=== PATIENT | male | born 1960 | race Caucasian/White ===

== ENCOUNTER 2023-10-04 06:53 | Outpatient (OUT) | payer MEDICARE, OTHER, SELFPAY ==
[2023-10-04 07:40] LABS: Basophils Percent Auto 0.3 % (0.2-2.0); Eosinophils Absolute Auto 0.2 10^3/uL (0.0-0.7); Eosinophils Percent Auto 2.2 % (0.9-7.0); Hematocrit 52.2 % (42.0-54.0); Hemoglobin 17.2 g/dL (14.0-18.0); Immature Granulocytes Abs Auto 0.03 10^3/uL (0.00-0.03); Immature Granulocytes Pct Auto 0.3 % (0.0-0.5); Lymphocytes Absolute Auto 1.9 10^3/uL (1.2-3.8); Mean Corpuscular Hemoglobin 30.9 pg (25.9-34.0); Mean Corpuscular Volume 93.7 fL (80.0-94.0); Monocytes Absolute Auto 0.8 10^3/uL (0.3-0.8); Monocytes Percent Auto 9.1 % (1.7-12.0); Neutrophils Absolute Auto 6.2 10^3/uL (1.4-6.5); Neutrophils Percent Auto 67.1 % (43.0-75.0); Platelet Count 244 10^3/uL (150-450); Red Blood Count 5.57 10^6/uL (4.70-6.10); Red Cell Distribution Width 14.2 % (11.0-15.0); White Blood Count 9.2 10^3/uL (4.0-11.0)
[2023-10-04 07:46] LABS: Alanine Aminotransferase 19 U/L (16-63); Albumin Globulin Ratio 1.1; Albumin Level 3.9 g/dL (3.4-5.0); Alkaline Phosphatase 81 U/L (46-116); Aspartate Amino Transferase 16 U/L (15-37); BUN Creatinine Ratio 11.3; Bilirubin Total 0.8 mg/dL (0.2-1.0); Calcium 8.8 mg/dL (8.5-10.1); Carbon Dioxide 29.9 mmol/L (21.0-32.0); Chloride 101 mmol/L (98-107); Estimated GFR (African America >60 (>=60); Estimated GFR (Non-African Ame 59 (>=60); Globulin 3.6 g/dL; Glucose 108 mg/dL (74-106); Potassium 3.9 mmol/L (3.5-5.1); Sodium 138 mmol/L (136-145); Total Protein 7.5 g/dL (6.4-8.2)
== END 2023-10-04 06:54 | disposition home or self-care (01) ==
LOC: LAB 06:57
PROVIDERS: PCP Family Medicine; Visit Provider Family Medicine
DX: I10 Essential (primary) hypertension (principal); Z12.5 Encounter for screening for malignant neoplasm of prostate
CPT/HCPCS: 36415; 80053; 85025; G0103

== ENCOUNTER 2025-02-21 06:17 | Outpatient (OUT) | payer MEDICARE, OTHER, SELFPAY ==
--- OUTSIDE RECORDS SUMMARY | 2025-02-19 08:50 | XMS_ITS | Continuity of Care Document ---
Author Organization [facility] Address [address] [place] [address] Phone Care Team Providers Care Machine Overhauler Name Role Phone Zee Loyola MD Primary Care Provider Zee Loyola MD Attending Provider Care Teams Patient Care Team Team Status: Active Member Role/Relationship Status Dates Zee Loyola MD Primary Care Provider Active Patient Care Team Team Status: Inactive Member Role/Relationship Status Dates Zee Loyola MD Primary Care Provider Active Start: February 19, 2025 End: February 19, 2025Zee Loyola MDAttending ProviderActiveStart: February 19, 2025 End: February 19, 2025 Chief Complaint and Reason for Visit Chief Complaint Admit Date Wellness February 19, 2025 1:02pm Reason for Visit Admit Date Cervical pain (neck) February 19, 2025 1:02pm Colon cancer screening declined February 19, 2025 1:02pm Essential (primary) hypertension Perry hinds 2024 1:02pm History of CVA (cerebrovascular accident ) February 19, 2025 1:02pm Influenza vaccination declined by juana kaye February 19, 2025 1:02pm Medicare annual wellness visit, subseque nt February 19, 2025 1:02pm Screening PSA (prostate specific antigen ) February 19, 2025 1:02pm Vertigo February 19, 2025 1:02pm Reason for Referral Type Reason(s) Provider Provider Contact Information P rovider Address Start Date Vertigo Neck pain History of cerebrovascular [id number] - Dizziness and giddiness,M54.2 - Cervicalgia,Z86.73 - Personal history of transient ischemic attack (TIA), and cerebral infarction without residual deficitsN[facility] Phone: [phone] [facility] [id number] 2024 Allergies, Adverse Reactions, Alerts Allergen Type Severity Reaction Last Updated Verified Status No Known Allergies Allergy Unknown February 19, 2025 1:12pmYesActive Social History Smoking Status Status Start Date End Date Date of Observa tion Smokes tobacco daily (finding) August 11, 2024 8:18pm Observation Status Observation Response Date of Response Legal Sex Male (finding) Sex Assigned At [facility] 1960 Family History Relationship Condition Age at Onset Recorded Date/T abiodun father Malignant neoplasm Unknown sisterMalignant neoplasmUnknownbrotherDiabetes mellitusUnknownmotherHypertension Unknown Problems Active Problems Problem Diagnosis/Recorded Date Onset Date Stat us Elevated glucose February 19, 2025 1:38pm Unknown Active Colon cancer screening declined February 19, 2025 1: 37pm Unknown Active Medicare annual wellness vis it, subsequent 2023 10:30am Unknown Active Screening PSA (prostate spec ific antigen) September 26, 2023 10:30am Unknown Active Influenza vaccination declin ed by patient February 19, 2025 1:37pm Unknown Active Tobacco abuse 2023 10:30am Unknown Act tete Vertigo February 19, 2025 1:31pm Unknown A ctive Essential (primary) hypertension September 23, 2023 8:24a m Unknown Active Cervical pain (neck) August 22, 2024 8:44am Unknown Active History of CVA (cerebrovascu lar accident) August 22, 2024 8:44am Unknown Active Inactive/Resolved Problems Problem Diagnosis/Recorded Date Onset Date Stat us Torticollis August 11, 2024 7:53pm Unknown Resolv ed Medications Medication Status Dose Units Route Directions Qty Days Refills S tart Date Stop Date End Date Reason(s) Instructions Adherence Metoprolol Succinate 50 mg tablet extended release 24 hr Discontinued 0 .ROUTE.MYIMWXN003Frqgdyl 2023 7:27amOctober 2024 1:23pmTAKE 1 TABLET BY MOUTH DAILYMetoprolol Succinate 50 mg tablet extended release 24 hrActive0 .ROUTE.CUJNECP662Ssjclgc 2024 1:23pmTAKE 1 TABLET BY MOUTH DAILYComplies with drug therapyTizanidine (Zanaflex) 4 mg xopcpuOukipihtkhno5OOIIOkbdz times daily as needed for muscle gvsztkjbth66Uag 2024 11:00pmMay 2024 10:01amMethylprednisolone (Medrol (Zheng)) 4 mg tablets,dose mvmpJmnzqyfhrwfr9YA .IGMBMKK248Las 2024 11:00pmNovember 2024 1:12pmorally per package directionsTizanidine (Zanaflex) 4 mg ejipofUwqftn2SRPHTdzdm at bedtime as needed for muscle swzetzqike223Bif 2024 10:00amComplies with drug therapy Metoprolol Succinate 50 mg tablet extended release 24 pzNuvzisbqtxzo8IQZDVVtzkn September 22, 2023 11:00pmJune 2023 10:25amFreeTextSig: TAKE 1 TABLET BY MOUTH DAILY; Note: Source Status: Start; Refills: 0; Qty: 90 Tablet; Provider: Milla Koch ( )Albuterol Sulfate 90 mcg/actuation HFA aerosol tyeqjmdDpbhdv0IULUFLBDUPYULXDZKTP 4-6 HOURS as needed for shortness of breath or wheezing8.51June 2023 11:00pmComplies with drug therapyMetoprolol Succinate 50 mg tablet extended release 24 bnZbpitbcmddec32ISYPTcvea651Hdbw 2023 10:25amOctober 2023 7:27amFreeTextSig: TAKE 1 TABLET BY MOUTH DAILY; Note: Source Status: Start; Refills: 0; Qty: 90 Tablet; Provider: Milla Koch ( )Nicotine (Nicoderm Cq) 21 mg/24 hr patch 24 hourActive1 ATPXTSHRVRQKOHOGohwb191Brun 2023 11:00pmComplies with drug therapy Vital Signs Vital Reading Result Reference Range Collection Date/Time Height 74 [in_i] February 19, 2025 1:26otTpvuob807.67 kgNov2024 1:11pmHeart Rate67 /mav66-763DtpdvbqxFebruary 19, 2025 1:11pmRespiratory rate14 /fih50-14BuzsjsdpFebruary 19, 2025 1:11pmOxygen saturation by Pulse tivohitq45 %95-100February 19, 2025 1:11pmBP Cyuteqie659 mm[Hg]100-140February 19, 2025 1:11pmBP Jotxjayxn90 mm[Hg]60-100February 19, 2025 1:11pmBMI (Body Mass Index)31.3 kg/i4OmjfdxepFebruary 19, 2025 1:11pm Advance Directives Advance Directive Response Recorded Date/ Time Advance Directives No September 25 9:48am Insurance Providers Guarantor Kemar Nina Jairo Address [address] [place] [address]Clqueuv Info.Home Phone: Coverage Status Update:2024 Payer Group Member ID Coverage Type Subscriber Relationship to Subscriber Effective Date Expiration Date Medicare [id number] W Belcher Id: [id number] [address] [place] [address] [facility] Phone: [facility] [address] [place] [address] [place] [address] Work Phone: [phone] W Belcher Id: [id number] [address] [place] [address] [facility] [id number] W Belcher Id: [id number] [address] [place] [address] Home Phone: Self Encounters Encounter Location(s) Arrival/Admit Date Discharge/Departure Date Discharge/Departure Disposition Provider(s) Departed Physician/ Provider Office Visit -[facility] February 19, 2025 1:02pm February 19, 2025 1:49pm Discharged to home care or self care (routine discharge) Zee Loyola MD Recent Diagnosis Onset Date Admit Date Cervical pain (neck) Unknown February 192024 1:02pm Colon cancer screening declined Unknown February 19, 2025 1:02pm Essential (primary) hypertension Unknown February 19, 2025 1:02pm History of CVA (cerebrovascular accident) Unknow n February 19, 2025 1:02pm Influenza vaccination declined by patient Unknow n February 19, 2025 1:02pm Medicare annual wellness visit, subsequent Unkno wn February 19, 2025 1:02pm Screening PSA (prostate specific antigen) Unknow n February 19, 2025 1:02pm Vertigo Unknown February 19, 2 025 1:02pm Assessments Diagnosis Onset Date Resolution Status Admit Date [facility]:02pmColon cancer screening declinedacuteFebruary 19, 2025 1:02pmEssential (primary) hypertensionacute[facility]20[facility] 1:02pm History of CVA (cerebrovascular accident)[facility] 1:02pm Influenza vaccination declined by patientacuteNov2024 1:02pmMedicare annual wellness visit, subsequentacuteFebruary 19, 2025 1:02pmScreening PSA (prostate specific antigen)[facility] 1:02pmVertigoacuteTristar [facility] 2024 1:02pm Plan of Treatment Future Tests Future scheduled test information is unavailable Pending Tests Test Name Ordered Date Scheduled Date Comprehensive Metabolic Panel February 19 1:37pm Future Visits Future appointment information is unavailable Future Procedures Procedure Name Ordered Date Scheduled Date A1C with Estimated Average Glu February 19 1:37pm Complete Blood Count Auto DiffNov2024 1:37pmLipid PanelCarteret Health Care2024 1:37pmMicroAlb Creat Ratio,UNovember 2024 1:38pmPSA Screen (Yearly Only)February 19, 2025 1:37pm Future Medications Future medication information is unavailable Patient Instructions Patient instructions are unavailable Hospital Discharge Instructions Ambulatory Orders* Referral to PT / OT / Speech (PT/OT/SP) Location: None Selected
--- OUTSIDE RECORDS SUMMARY | 2025-02-21 06:22 | XMS_ITS | CCD ---
Author Organization [facility] Care Team Providers Care Drum Worker Name Role Phone DR ZEE MARSHALL Consulting Unavailable ROLANDO, DR ZEE Fink Attending Unavailable ROLANDO, DR ZEE Fink Admitting Unavailable ROLANDO, DR ZEE Fink Primary Care Unavailable ROLANDO, DR ZEE Fink Primary Care Unavailable ROLANDO, DR ZEE Fink Consulting Unavailable ROLANDO, DR ZEE Fink Attending Unavailable ROLANDO, DR ZEE Fink Admitting Unavailable Zee Marshall MD Primary Care Provider [phone] Bethany Salcedo APRN Emergency Provider [phone] Zee Marshall Primary Care Unavailable Bethany Salcedo Attending Unavailable Bethany Salcedo Admitting Unavailable Medications Current Medications MedicationDrug Class(es)DatesSig (Normalized)Sig (Original)[id number] 200 actuat albuterol 0.09 mg/actuat metered dose inhaler (3 sources)beta2-Adrenergic AgonistStart: 07-09-0102ntpz 1 puff(s) by inhalation every four to six hours as needed for wheezingAlbuterol Sulfate 90 mcg/actuation HFA aerosol inhaler Active 2 PUFF INHALATION EVERY 4-6 HOURS as needed for shortness of breath or wheezing 8.5 September 26, 2023 12:00ammethylPREDNISolone 4 mg oral tablet (2 sources)CorticosteroidStart: 31-05-5995kqit 1 tablet by mouth once Methylprednisolone (Medrol (Zheng)) 4 mg tablets,dose pack Active 0 PO .COMPLEX August 11, 2024 12:00am orally per package cpisaxcctq84 hr metoprolol succinate 50 mg extended release oral tablet (8 sources)beta-Adrenergic BlockerStart: 29-70-8192krqa 1 tablet by mouth once dailyMetoprolol Succinate 50 mg tablet extended release 24 hr Active 0 .ROUTE .COMPLEX January 19, 2024 8:27am TAKE 1 TABLET BY MOUTH DAILYStart: 06-21-2024 End: 34-16-3799kijp 1 tablet by mouth once dailyMetoprolol Succinate 50 mg tablet extended release 24 hr Discontinued 50 MG PO Daily September 26, 2023 11:25am January 19, 2024 8:27am FreeTextSig: TAKE 1 TABLET BY MOUTH DAILY; Note: Source Status: Start; Refills: 0; Qty: 90 Tablet; Provider: Rolando Koch ( )24 hr nicotine 0.875 mg/hr transdermal system (3 sources)Cholinergic Nicotinic AgonistStart: 89-84-4014wllmm 1 dose transdermal route once daily, then apply 1 dose transdermal route every twenty- four hoursNicotine (Nicoderm Cq) 21 mg/24 hr patch 24 hour Active 1 PATCH TRANSDERML Daily September 252:00amtiZANidine 4 mg oral tablet (3 sources)Central alpha-2 Adrenergic AgonistStart: 40-52-6843kgfv 1 tablet by mouth once daily at bedtime as neededTizanidine (Zanaflex) 4 mg tablet Active 4 MG PO Daily at bedtime as needed for muscle spasticity August 16, 2024 11:00am Start: 08-11-2024 End: 57-57-4382sbrj 1 tablet by mouth three times daily as neededTizanidine (Zanaflex) 4 mg tablet Discontinued 4 MG PO Three times daily as needed for muscle spasticity August 11, 2024 12:00am August 16, 2024 11:01am Problems Active Problems Problem ClassificationProblemDateDocumented DateEpisodic/ChronicEssential hypertension (9 sources)Essential (primary) hypertension; Translations: [Essential hypertension]Onset: 21-07-0385EagkcdeKgbie screening for suspected conditions (not mental disorders or infectious disease) (5 sources)Encounter for screening for malignant neoplasm of prostate; Translations: [Patient encounter status]Onset: [id number] Residual codes; unclassified (2 sources)Tobacco user; Translations: [Tobacco use]69-34-6548Eycfkxpq Spondylosis; intervertebral disc disorders; other back problems (3 sources)Torticollis; Translations: [Torticollis]Onset: 86-42-570955 Episodic Past or Other Problems Problem ClassificationProblemDateDocumented DateEpisodic/ChronicDiabetes mellitus without complication (4 sources)Impaired fasting glucose; Translations: [IMPAIRED FASTING GLUCOSE] Onset: 60-50-4907Qhjyontk Results Test NameValueInterpretationReference RangeFacilityXR cervical spine 5V*on 44-96-8330BI cervical spine 5V*[facility] Main [address] [address] XRay Report Signed Patient: Kemar Gill MR#: [id number] : 1960 Acct:[id number] Age/Sex: 63 / M ADM Date: 08/11/24 Loc: ER Room: Type: [facility] ER Attending Dr: Copies to: Bethany Salcedo APRN Ordering Provider: Bethany Salcedo APRN Date of Service: 08/11/24 XR/XR cervical spine 5V*: Neck Pain/Injury XR cervical spine 5V* 08/11/2024 8:09 PM SIGNS AND SYMPTOMS: Neck pain and neck stiffness PROTOCOLS: Frontal, lateral, and oblique radiographs of the cervical spine COMPARISON: None FINDINGS: The bones are in anatomic alignment. There is preservation of the vertebral body heights and intervertebral disc spaces. Facet hypertrophy and uncovertebral joint spurring contribute to neural foraminal stenosis which is greatest at C3-C4. There is no fracture or destructive lesion. Calcified plaque is noted in the carotid bifurcations and aortic arch. XR/XR cervical spine 5V* IMPRESSION: No fracture or subluxation. Degenerative changes contribute to neural foraminal narrowing greatest at C3-C4. Impression dictated by: Philip Neville M.D. 08/12/2024 9:08 AM Dictation Location: [place] [address] Transcribed By: [facility] 08/12/24907 Dictated By: Philip Neville II, MD 08/12/24904 Signed By: 08/12/24 09[facility] GroupX-ray reportOrdered By: Philip Neville on 98-26-1158Lrjlz reportFIRJOINT TOWNSHIP [facility] Main [address] [address] XRay Report Signed Patient: Kemar Gill MR#: [id number] : 1960 Acct:[id number] Age/Sex: 63 / M ADM Date: 5 Loc: ER Room: Type: [facility] ER Attending Dr: Copies to: Bethany Salcedo APRN~ Ordering Provider: Bethany Salcedo APRN Date of Service: 08/11/24 XR/XR cervical spine 5V*: Neck Pain/Injury XR cervical spine 5V* 08/11/2024 8:09 PM SIGNS AND SYMPTOMS: Neck pain and neck stiffness PROTOCOLS: Frontal, lateral, and oblique radiographs of the cervical spine COMPARISON: None FINDINGS: The bones are in anatomic alignment. There is preservation of the vertebral bodyheights and intervertebral disc spaces. Facet hypertrophy and uncovertebral joint spurring contribute to neural foraminal stenosis which is greatest at C3- C4. There is no fracture or destructive lesion. Calcified plaque is noted in the carotid bifurcations and aortic arch. XR/XR cervical spine 5V* IMPRESSION: No fracture or subluxation. Degenerative changes contribute to neural foraminal narrowing greatest at C3-C4. Impression dictated by: Philip Neville M.D. 08/12/2024 9:08 AM Dictation Location: [place] [address] Transcribed By: [facility] 08/12/24907 Dictated By: Philip Neville II, MD 08/12/24904 Signed By: 08/12/24907 [facility] Work Phone: CBV AUTO DIFFon 87-03-1361KYHR #0.0 103/ulNormal 0.0-0.1The [facility] HealthComment on above:Performed By: #### CBC #### [facility] [address] [place] [address] [address] Khari Grafphils/100 WBC (Bld)0.4 %Normal0.2-2.0[facility] Comment on above:Performed By: #### CBC #### [facility] [address] [place] [address] [address] Khari Bryson #0.2 103/ulNormal0.0-0.7The [facility] HealthComment on above: Performed By: #### CBC #### [facility] [address] [place] [address] Dr. Khari Delcidosinophils/100 WBC (Bld)2.0 %Normal0.9-7.0[facility] Comment on above:Performed By: #### CBC #### [facility] [address] [place] [address] Dr. Khari Delcidrythrocyte distribution width (RBC) [Ratio]13.8 %Jekxek38.0-15.0 The [facility] HealthComment on above:Performed By: #### CBC #### [facility] [address] [place] [address] Dr. Khari AyalaHematocrit (Bld) [Volume fraction]52.8 %Zvdqnl25.0-54.0The [facility] HealthComment on above:Performed By: #### CBC #### [facility] [address] [place] [address] Dr. Khari AyalaHemoglobin (Bld) [Mass/Vol]17.7 g/cPMuyqxk58.0-18.0The [facility] HealthComment on above:Performed By: #### CBC #### [facility] [address] [place] [address] Dr. Khari Bland #0.05 10e3/ulCritically high0.00-0.03[facility] Comment on above:Performed By: #### CBC #### [facility] [address] [place] [address] Dr. Khari Bland %0.5 %Normal0.0-0.5The [facility] HealthComment on above: Performed By: #### CBC #### [facility] [address] [place] [address] Dr. Khari Becerra #2.9 103/ulNormal1.2-3.8The [facility] HealthComment on above:Performed By: #### CBC #### [facility] [address] [place] [address] Dr. Khari Whitemphocytes/100 WBC (Bld)28.4 %Lamxhr14.5-60.0The [facility] HealthComment on above:Performed By: #### CBC #### [facility] [address] [place] [address] Dr. Khari Wheeler DIFF REQNONormalThe Madison HealthComment on above: Performed By: #### CBC #### [facility] [address] [place] [address] Dr. Khari Ribeiro (RBC) [Entitic mass]31.3 blVubhya33.9-34.0The [facility] HealthComment on above:Performed By: #### CBC #### [facility] [address] [place] [address] Dr. Khari Ribeiro (RBC) [Mass/Vol]33.5 g/vNPiezhf52.9-35.2The [facility] HealthComment on above:Performed By: #### CBC #### [facility] [address] [place] [address] Dr. Khari Ribeiro (RBC) [Entitic vol]93.5 nRKascrp40.0-94.0The [facility] HealthComment on above:Performed By: #### CBC #### [facility] [address] [place] [address] Dr. Khari West #1.0 103/ulCritically high0.3-0.8[facility] Comment on above:Performed By: #### CBC #### [facility] [address] [place] [address] Dr. Khari Oliviaocytes/100 WBC (Bld)9.7 %Normal1.7-12.0[facility] Comment on above:Performed By: #### CBC #### [facility] [address] [place] [address] Dr. Khari Bull #5.9 103/ulNormal1.4-6.5The [facility] HealthComment on above:Performed By: #### CBC #### [facility] [address] [place] [address] Dr. Khari Boyerutrophils/100 WBC (Bld)59.0 %Lwqzic50.0-75.0The [facility] HealthComment on above:Performed By: #### CBC #### [facility] [address] [place] [address] Dr. Khari Randhawalet mean volume (Bld) [Entitic vol]8.9 fLCritically low 9.5-13.5The [facility] HealthComment on above:Performed By: #### CBC #### [facility] [address] [place] [address] Dr. Khari AyalaPLT254 103/nwGvmzyc979-687Luu Madison HealthComment on above: Performed By: #### CBC #### [facility] [address] [place] [address] Dr. Khari AyalaRBC5.65 106/ulNormal4.70-6.10The [facility] HealthComment on above:Performed By: #### CBC #### [facility] [address] [place] [address] Dr. Khari AyalaWBC10.1 103/ulNormal4.0-11.0The [facility] HealthComment on above:Performed By: #### CBC #### [facility] [address] [place] [address] Dr. Khari Soares AUTO DIFFon 35-27-2220KJCD #0.0 103/ulNormal0.0-0.1The [facility] HealthComment on above:Performed By: #### CBC #### [facility] [address] [place] [address] Dr. Khari AyalaBasophils/100 WBC (Bld)0.3 %Normal0.2-2.0[facility] Comment on above:Performed By: #### CBC #### [facility] [address] [place] [address] Dr. Khari Bryson #0.2 103/ulNormal0.0-0.7The [facility] HealthComment on above: Performed By: #### CBC #### [facility] [address] [place] [address] [address] Khari Delcidosinophils/100 WBC (Bld)1.3 %Normal0.9-7.0[facility] Comment on above:Performed By: #### CBC #### [facility] [address] [place] [address] Dr. Khari Delcidrythrocyte distribution width (RBC) [Ratio]13.9 %Kddapq50.0-15.0 The [facility] HealthComment on above:Performed By: #### CBC #### [facility] [address] [place] [address] Dr. Khari AyalaHematocrit (Bld) [Volume fraction]52.0 %Oyilww46.0-54.0The [facility] HealthComment on above:Performed By: #### CBC #### [facility] [address] [place] [address] Dr. Khari AyalaHemoglobin (Bld) [Mass/Vol]17.7 g/aEIcjcna47.0-18.0The [facility] HealthComment on above:Performed By: #### CBC #### [facility] [address] [place] [address] Dr. Khari Bland #0.06 10e3/ulCritically high0.00-0.03[facility] Comment on above:Performed By: #### CBC #### [facility] [address] [place] [address] Dr. Khari Bland %0.4 %Normal0.0-0.5The [facility] HealthComment on above: Performed By: #### CBC #### [facility] [address] [place] [address] Dr. Khari Becerra #2.2 103/ulNormal1.2-3.8The [facility] HealthComment on above:Performed By: #### CBC #### [facility] [address] [place] [address] Dr. Khari Whitemphocytes/100 WBC (Bld)16.0 %Critically low20.5-60.0The [facility] on above:Performed By: #### CBC #### [facility] [address] [place] [address] [address] Khari Wheeler DIFF REQNONormalThe Madison HealthComment on above: Performed By: #### CBC #### [facility] [address] [place] [address] [address] Khari Ribeiro (RBC) [Entitic mass]31.4 ylDtqufh81.9-34.0The [facility] HealthComment on above:Performed By: #### CBC #### [facility] [address] [place] [address] [address] Khari Ribeiro (RBC) [Mass/Vol]34.0 g/cEUxhakx04.9-35.2The [facility] HealthComment on above:Performed By: #### CBC #### [facility] [address] [place] [address] Dr. Khari Ribeiro (RBC) [Entitic vol]92.2 vWKodrij39.0-94.0[facility] Campusment on above:Performed By: #### CBC #### [facility] [address] [place] [address] Dr. Khari West #1.2 103/ulCritically high0.3-0.8ThChildren[facility] Hospital of [facility] Comment on above:Performed By: #### CBC #### [facility] [address] [place] [address] [address] Khari Oliviaocytes/100 WBC (Bld)9.0 %Normal1.7-12.0[facility] Comment on above:Performed By: #### CBC #### [facility] [address] [place] [address] [address] Khari Bull #9.8 103/ulCritically high1.4-6.5ThChildren's Hospital of [facility] Comment on above:Performed By: #### CBC #### [facility] [address] [place] [address] Dr. Khari Boyerutrophils/100 WBC (Bld)73.0 %Vqocgb69.0-75.0The [facility] on above:Performed By: #### CBC #### [facility] [address] [place] [address] [address] Khari Randhawalet mean volume (Bld) [Entitic vol]8.6 fLCritically low 9.5-13.5The [facility]Communson [facility] on above:Performed By: #### CBC #### [facility] [address] [place] [address] [address] Khari AyalaPLT260 103/poOabfbo256-923Fbg [facility]Commun[facility] on above: Performed By: #### CBC #### [facility] [address] [place] [address] [address] Khari AyalaRBC5.64 106/ulNormal4.70-6.10The [facility]Communson [facility] on above:Performed By: #### CBC #### [facility] [address] [place] [address] Dr. Khari AyalaWBC13.4 103/ulCritically high4.0-11.0The [facility]Communson [facility] on above:Performed By: #### CBC #### [facility] [address] [place] [address] Dr. Khari AyalaGLYCOHEMOGLOBIN A1Con 85-28-9101VOZ RECOMMENDATIONSEE BELOWNormal [facility] on above:Result Comment: ADA RECOMMENDED LIMIT 4.0 - 6.0 ADA THERAPEUTIC TARGET < 7.0 ACTION SUGGESTED > 7.0Performed By: #### A1C #### [facility] [address] [place] [address] Dr. Khari AyalaGlucose [Mass/Vol]108 mg/dLNormalThGerman Hospital on above:Performed By: #### A1C #### [facility] [address] [place] [address] Dr. Khari AyalaHbA1c (Bld) [Mass fraction]5.4 %Normal4.5-6.2The [facility] on above:Performed By: #### A1C #### [facility] [address] [place] [address] Dr. Khari EsparzaID PROFILEon 20-05-0591ZHJW-HDL RATIO NORMSSt. Francis HospitalCommunson healthcare [facility]ist[facility] hospital on above:Result Comment: 3.3 - 4.4 LOW RISK 4.4 - 7.1 AVERAGE RISK 7.1 - 11.0 MODERATE RISK >11.0 HIGH RISKPerformed By: #### LIPID, CMP #### [facility] [address] [place] [address] Dr. Khari AyalaCholesterol [Mass/Vol]209 mg/dLCritically high<=200The [facility] on above:Performed By: #### LIPID, CMP #### [facility] [address] [place] [address] Dr. Khari AyalaCholesterol in HDL [Mass/Vol]52 mg/bBVlpbzw34-33HevMagruder Hospital on above:Performed By: #### LIPID, CMP #### [facility] [address] [place] [address] Dr. Khari AyalaCholesterol in LDL [Mass/Vol]136.0 mg/dLSt. Anthony's HospitalCommunson healthcare [facility]ist[facility] hospital on above:Performed By: #### LIPID, CMP #### [facility] [address] [place] [address] Dr. Khari Rowellesterrenetta.total/Cholesterol in HDL [Mass ratio]4.0 {ratio} NormalMagruder Hospital on above:Performed By: #### LIPID, CMP #### [facility] [address] [place] [address] Dr. Khari Suarez NORMAL> or = 60 mg/dl - LOW CARDIOVASCULAR RISK <40 mg/dl - HIGH CARDIOVASCULAR RISKSt. Anthony's HospitalCommunson healthcare [facility] on above:Performed By: #### LIPID, CMP #### [facility] [address] [place] [address] Dr. Khari AyalaLDL CALC NORMALSEE [facility] CenterCommunson [facility] on above:Result Comment: <100 mg/dl OPTIMAL 100 - 129 mg/dl NEAR OR ABOVE OPTIMAL 130 - 159 mg/dl BORDERLINE HIGH 160 - 189 mg/dl HIGH >190 mg/dl VERY HIGH Performed By: #### LIPID, CMP #### [facility] [address] [address] [address] Khari AyalaTriglyceride [Mass/Vol]105 mg/dLNormal<=150The [facility] Comment on above:Performed By: #### LIPID, CMP #### [facility] [address] [address] [address] Khari AyalaVLDL CALC21.0 mg/dLNormalThe Madison HealthComment on above: Performed By: #### LIPID, CMP #### [facility] [address] [address] [address] Khari AyalaPROF 14(COMP METB)on 55-80-5733Dpdtffq [Mass/Vol]4.1 g/dLNormal 3.4-5.0The [facility] HealthComment on above:Performed By: #### LIPID, CMP #### [facility] [address] [place] [address] Dr. Khari AyalaAlbumin/Globulin [Mass ratio]1.1 {ratio}NormalThe Madison HealthComment on above:Performed By: #### LIPID, CMP #### [facility] [address] [address] [address] Khari Boyd [Catalytic activity/Vol]87 U/RFfmnzs66-274Sdm [facility] HealthComment on above:Performed By: #### LIPID, CMP #### [facility] [address] [place] [address] Dr. Khari Abarca [Catalytic activity/Vol]16 U/JOvpmwl74-94Tkh [facility] HealthComment on above:Performed By: #### LIPID, CMP #### [facility] [address] [place] [address] Dr. Khari Shabazz gap [Moles/Vol]11.6 mmol/LNormalThe [facility] Comment on above:Performed By: #### LIPID, CMP #### [facility] [address] [place] [address] Dr. Khari Avina [Catalytic activity/Vol]15 U/NVfenfy80-11Adb [facility] HealthComment on above:Performed By: #### LIPID, CMP #### [facility] [address] [address] [address] Khari AyalaBilirubin [Mass/Vol]1.0 mg/dLNormal0.2-1.0[facility] Comment on above:Performed By: #### LIPID, CMP #### [facility] [address] [address] [address] Khari AyalaCalcium [Mass/Vol]9.4 mg/dLNormal8.5-10.1The [facility] Comment on above:Performed By: #### LIPID, CMP #### [facility] [address] [address] [address] Khari AyalaChloride [Moles/Vol]99 mmol/ORiznxl19-950TdfSheltering Arms Hospital Comment on above:Performed By: #### LIPID, CMP #### [facility] [address] [place] [address] Dr. Khari AyalaCO2 [Moles/Vol]29.4 mmol/VHvaxgf79.0-32.0The [facility] Comment on above:Performed By: #### LIPID, CMP #### [facility] [address] [address] [address] Khari AyalaCreatinine [Mass/Vol]1.05 mg/dLNormal0.70-1.30The [facility] HealthComment on above:Performed By: #### LIPID, CMP #### [facility] [address] [address] [address] Khari DelcidGFR-AF LITHUANIAN>60Normal>=60The [facility] HealthComment on above:Performed By: #### LIPID, CMP #### [facility] [address] [address] [address] Khari DelcidGFR-NON AF LITHUANIAN>60Normal>=60The [facility] Hospitalment on above:Performed By: #### LIPID, CMP #### [facility] [address] [address] [address] Khari AyalaGlobulin (S) [Mass/Vol]3.9 g/dLNormalThe [facility]aro HospitalComment on above:Performed By: #### LIPID, CMP #### [facility] [address] [address] [address] Khari AyalaGlucose [Mass/Vol]110 mg/dLCritically glcg11-368RmdSheltering Arms HospitalComment on above:Performed By: #### LIPID, CMP #### [facility] [address] [address] [address] Khari AyalaPotassium [Moles/Vol]4.0 mmol/LNormal3.5-5.1The [facility] Comment on above:Performed By: #### LIPID, CMP #### [facility] [address] [address] [address] Khari AyalaProtein [Mass/Vol]8.0 g/dLNormal6.4-8.2[facility] Comment on above:Performed By: #### LIPID, CMP #### [facility] [address] [address] [address] Khari AyalaSodium [Moles/Vol]136 mmol/YIuuciy774-311ZegSheltering Arms Hospital Comment on above:Performed By: #### LIPID, CMP #### [facility] [address] [address] [address] Khari AyalaUrea nitrogen [Mass/Vol]12.0 mg/dLNormal7.0-18.0[facility] HospitalComment on above:Performed By: #### LIPID, CMP #### [facility] [address] [address] [address] Khari AyalaUrea nitrogen/Creatinine [Mass ratio]11.4 mg/mgNormalThe [facility] HealthComment on above:Performed By: #### LIPID, CMP #### [facility] [address] [address] [address] Khari Ayala Vital Signs Date TimeVital SignValuePerforming HcwwgfhldQpzdscvc62-97-1837 10:38-0400Body .96 cmZee Marshall MD Work Phone: [facility]05-15-2025 10:38-0400 Body mass index (BMI) [Ratio]31.4 kg/a0DjqairZee Marshall MD Work Phone: [phone] [place], [place] 4246205-15-2025 10:38-0400 Body fegdrk844.13 kgZee Marshall MD Work Phone: [phone] [place], [place] 4246205-15-2025 10:38-0400 Diastolic blood tnxrnnup23 mm[Hg]Zee Marshall MD Work Phone: [phone] [place], [place] 4246205-15-2025 10:38-0400 Heart rate59 /David Marshall MD Work Phone: [phone] [place], [place] 4246205-15-2025 10:38-0400 Systolic blood exurkkcb919 mm[Hg]Zee Marshall MD Work Phone: [phone] [place], [place] 4246205-10-2025 19:42-0400 Body bhyuml168.5 cmZee Marshall MD Work Phone: [phone] [place], [place] 4246205-10-2025 19:42-0400 Body dlpiaswptrz98.3 [degF]Zee Marshall MD Work Phone: [phone] [place], [place] 4246205-10-2025 19:42-0400 Body ontamx199.45 kgZee Marshall MD Work Phone: [phone] [place], [place] 4246205-10-2025 19:42-0400 Diastolic blood fnujzrol190 mm[Hg]Zee Marshall MD Work Phone: [phone] [place], [place] 4246205-10-2025 19:42-0400 Heart rate64 /David Marshall MD Work Phone: [phone] [place], [place] 4246205-10-2025 19:42-0400 Respiratory rate18 /David Marshall MD Work Phone: [phone] [place], [place] 4246205-10-2025 19:42-0400 SaO2% (BldA) [Mass fraction]95 %Zee Marshall MD Work Phone: [phone] [place], [place] 4246205-10-2025 19:42-0400 Systolic blood asijfdam351 mm[Hg]Zee Marshall MD Work Phone: [facility]06-24-2024 11:040400 Body ourdom614.88 cmOhiohealth [facility] Hospital06-24-2024 11:04-0400Body mass index (BMI) [Ratio]33.2 kg/w0LkvofafxmOhiohealth [facility] Hospital06-24-2024 11:040400Body kqrwli930.13 kgOhiohealth [facility] Hospital06-24-2024 11:04-0400Diastolic blood uyyafeml77 mm[Hg][facility] 09-26-2023 11:040400Heart rate62 /minOhiohealth Dublin Methodist Hospital 09-26-2023 11:040400Systolic blood lhjoeksv208 mm[Hg][facility] Encounters Encounter DateEncounter TypeCare ProviderFacilityStart: 08-16-2024 End: 57-22-3946ncazqoufxlZmprih E Braun MD Work Phone: [facility] Work Phone: Start: 08-16-2024 End: 07-86-4893Arbqxbf encounter procedureZee Marshall MD Work Phone: [facility] Work Phone: Start: 12-14-2539Cye-patient / Non-visitZee Marshall MD Work Phone: [facility] Work Phone: Start: 08-11-2024 End: 89-55-2834Mrlkoodid department patient visitZee Marshall MD Work Phone: [facility] Work Phone: Start: 95-78-0007Smriynd encounter procedureZee Marshall MD Work Phone: [facility] 09-26-2023 End: 56-80-9563loakscglusPnjssxiglThe [facility] Work Phone: Start: 09-26-2023 End: 38-17-2072Akevapt [facility] procedureAn[facility] Work Phone: Start: 39-67-1036Gpn-patient / Non-visitAn[facility] Work Phone: Start: 06-30-2022 End: 73-86-0090pcwypvrotsKU MARCIA E BRAUNFacility:U0Iqxon: 03-17-2022 End: 14-91-6632dettoslulmSM MARCIA E BRAUNFacility:H1 Procedures DateProcedureProcedure DetailPerforming ClinicianStart: 90-20-4282E-ray of cervical spineZee Marshall MD Work Phone: Start: 53-38-6373GOP screeningDR ZEE MARSHALLComment on above:Performed By: #### [facility] #### [facility] [address] [place] [address] Dr. Khari Ayala Plan of Treatment DateCare ActivityDetailAuthorStart: 85-80-5174C-ray of cervical spineXR cervical spine 5V*[facility]: 93-58-0350QU Cervical spine 5 ViewsOhiohealth Dublin Methodist HospitalComprehensive metabolic 2000 panel - Serum or PlasmaOhiohealth Dublin Methodist HospitalPatient EducationTorticollis, Adult [facility] Work Phone: [facility] Work Phone: [facility] Payers DatePayer CategoryPayerPolicy [id number] [id number] 1962 [id number] [facility] [id number] Social History DateTypeDetailFacilityStart: 09-26-2023 End: 46-89-0282Dsqvfzx smoking status NHISSmoker (finding)[facility]: 64-15-1162Hyc [facility]: 08-11-2024 End: 93-51-3238OkaLovo (finding)[facility] Evaluation note Note Date & TypeNoteFacilityEvaluation note* Diagnosis Onset Date Resolution Status Essential (primary) hypertension acuteScreening PSA (prostate specific antigen)acute [facility] Work Phone: Evaluation note Note Date & TypeNoteFacilityEvaluation noteNo assessment information available [facility] Work Phone: Hospital Discharge instructions Note Date & TypeNoteFacilityHospital Discharge instructions Additional Instructions Ice for the next 24 hours and then rotate heat Zanaflex if needed for muscle spasms Take steroids as directed until gone Follow with your PCP call Tuesday for appointment Avoid any heavy lifting or straining Avoid any pillow changes Return here if any problems persist or worsenR[facility]ide [facility] Work Phone: Summary Purpose Family History No Family History Records Found Relationship Condition Age at Onset Recorded Date/T abiodun father Malignant neoplasm Unknown sisterMalignant neoplasmUnknownbrotherDiabetes mellitusUnknownNot Specified HypertensionUnknown Relationship Condition Age at Onset Recorded Date/T abiodun father Malignant neoplasm Unknown sisterMalignant neoplasmUnknownbrotherDiabetes mellitusUnknownmotherHypertension Unknown Advance Directives No Advanced Directives Records Found Advance Directive Response Recorded Date/ Time Advance Directives No September 25 10:48am Chief Complaint and Reason for Visit Chief Complaint Amb Documentation wellnessReason for VisitEssential (primary) hypertension Screening PSA (prostate specific antigen) Chief Complaint Admit Date neck pain August 11, 2024 7:27p m Chief Complaint Admit Date neck pain August 11, 2024 7:27p m Amb Documentation August 14, 2024 8:26a m [facility] f/u:Neck Pain August 16, 2024 10: 35am Additional Source Comments (unrecognized sect ion and content) No Status Records FoundNo Status Records Found INFORMATION SOURCE (unrecogn ized section and content) DATE CREATED AUTHOR 07/03/2022 [facility] DATE CREATED AUTHOR AUTHOR'S ORGANIZ ATION 09/05/2024 [facility] Care Teams (unrecognized sec tion and content) Team Status: Active Member Role Status Dates NON STAFF Primary Care Provider Active Team Status: Active Member Role Status Dates NON STAFF Primary Care Provider Active Start: September 12, 2023 Jhony Hall ProviderActiveStart: September 12, 2023 Team Status: Inactive Member Role Status Dates NON STAFF Primary Care Provider Active Start: September 26, 2023 End: September 26, 2023Zee Marshall MDAttjai ProviderActiveStart: September 26, 2023 End: September 26, 2023 Team Status: Active Member Role Status Dates Zee Marshall MD Primary Care Provider Active Team Status: Inactive Member Role Status Dates Zee Marshall MD Primary Care Provider Active Start: August 11, 2024 End: August 11Sudha Oconnell ProviderActiveStart: August 11, 2024 End: August 11, 2024 Team Status: Active Member Role Status Dates Zee Marshall MD Primary Care Provider Active Start: August 14, 2024 Zulma Reese CMAAttjai ProviderActiveStart: August 14, 2024 Team Status: Inactive Member Role Status Dates Zee Marshall MD Primary Care Provide r, Attending Provider Active Start: August 16, 2024 End: August 16, 2024 Goals (unrecognized section and content) Goals may be documented in a n alternate sectionGoals may be documented in an alternate sectionGoals may be documented in an alternate section FOR RECORDS PERTAINING TO PATIENTS WHO ARE OR HAVE BEEN ENROLLED IN A CHEMICAL DEPENDENCY/SUBSTANCEABUSE PROGRAM, SOME INFORMATION MAY BE OMITTED. This clinical summary was aggregated from multiple sources. Caution should be exercised in using it in the provision of clinical care. This summary normalizes information from multiple sources, and as a consequence, information in this document may materially change the coding, format and clinical context of patient data. In addition, data may be omitted in some cases. CLINICAL DECISIONS SHOULD BE BASED ON THE PRIMARY CLINICAL RECORDS. [facility]. provides no warranty or guarantee of the accuracy or completeness of information in this document.
--- OUTSIDE RECORDS SUMMARY | 2025-02-21 06:23 | XMS_ITS | Clinical Summary ---
Author Organization [facility] tem Address [id number] [place] [address] Care Team Providers Care Music Education Director Name Role Phone Provider, Tricia RODAS Primary Care Provider Un available Social History Tobacco UseTypesPacks/DayYears UsedDateSmoking Tobacco: Never AssessedChildcare AnswerDate GrndcukgCbonpzmedCvceayp15/12/2019EmploymentAnswerDate Recorded BlesbsmedfKpgqvgx84/12/2019Sex and Gender InformationValueDate RecordedSex Assigned at BirthNot on fileLegal ZbqVksp0811/07/2014 11:35 AM EDTGender Identity Not on fileSexual OrientationNot on file Last Filed Vital Signs Vital SignReadingTime TakenCommentsBlood Cbaaufxu858/41276 12:00 AM EST Suaqj5571/04/2015 12:00 AM ESTTemperature--Respiratory Rate--Oxygen Saturation-- Inhaled Oxygen Concentration--Uieomz584 kg (246 lb 14.7 oz)06/05/2014 12:00 AM WZRAtvoan716.5 cm (6' 3 )06/05/2014 12:00 AM ESTBody Mass Index30.8606/05/2014 12:00 AM EST Plan of Treatment Not on file Medical Devices Not on file Care Teams Team MemberRelationshipSpecialtyStart DateEnd Date Provider, MD Tricia PCP - Erpdznx82/31/14
--- OUTSIDE RECORDS SUMMARY | 2025-02-21 06:23 | XMS_ITS | Patient Health Record ---
Author Organization [facility] [place] Address [address] [place] [address] Care Team Providers Care Metal Control Coordinator Name Role Phone None, Unknown or Primary Care Provider Unavailab le Reason For Referral No Information Medications Medication SIG (Take, Route, Frequency, Duration) Notes Start Date End Date Status Atorvastatin Calcium 40 mg 1 tablet DAILY ActiveCyclobenzaprine HCl 10 mg1 tablet Q8H ActiveMagnesium Oxide 400 (241.3 Mg) MG1, BIDActiveNeurontin 100 mg1 TID; Duration: 30 daysTake 100 mg at bedtime for 4 days, then twice daily for 4 days, then three times daily mfvuyxgiv73/01/2015ctiveHandicapped Tag ---1; Duration: 360 daysprn, good for 5 years06/06/2014ctiveMetanx Vitamin B Complex1 tablet(s) DAILY; Duration: 30 days08/19/2014ctiveBaclofen 10 mg1 TID; Duration: 30 days06/06/2014ctive Magnesium Oxide 400 mg1 BID; Duration: 30 days06/06/2014ctiveAspirin 81 mg1 tablet(s) DAILY; Duration: 30 days03/18/2014ctivePlavix 75 MG1, tablet(s), DAILYActiveMetoprolol Tartrate 50 mg1 tablet DAILY ActiveIbuprofen 800 mg1 tablet Q6H Active Plan Of Treatment No Information Insurance Providers Payer Name Payer Address Payer Phone Subscriber Number Group Number Insured Name Patient Relationship to Insured Coverage Start Date Coverage End Date FRONTPATH KEVIN WEI [address] [place] [id number] [address] Gill Self - patient is the insured 4 Medical (General) History Surgical History Surgery Date(Month/Year) History of cardiovascular surgery loop r ecobelindaer 02/03/14 forearm surgery 1974
[2025-02-21 06:55] LABS: Hematocrit 56.5 % (42.0-54.0); Hemoglobin 18.7 g/dL (14.0-18.0); Immature Granulocytes Abs Auto 0.07 10^3/uL (0.00-0.03); Immature Granulocytes Pct Auto 0.6 % (0.0-0.5); Lymphocytes Absolute Auto 2.3 10^3/uL (1.2-3.8); Mean Corpuscular HGB Conc 33.1 g/dL (29.9-35.2); Mean Corpuscular Hemoglobin 31.7 pg (25.9-34.0); Mean Corpuscular Volume 95.9 fL (80.0-94.0); Platelet Count 301 10^3/uL (150-450); Red Blood Count 5.89 10^6/uL (4.70-6.10); White Blood Count 12.1 10^3/uL (4.0-11.0)
[2025-02-21 07:34] LABS: Microalbum Creatinine Ratio Ur 9.4 mg/g (0.0-29.9)
[2025-02-21 07:34] LABS: Alanine Aminotransferase 29 U/L (16-63); Albumin Globulin Ratio 1.1; Albumin Level 4.1 g/dL (3.4-5.0); Alkaline Phosphatase 93 U/L (46-116); Anion Gap 11.7; Aspartate Amino Transferase 31 U/L (15-37); Blood Urea Nitrogen 22.0 mg/dL (7.0-18.0); Calcium 9.4 mg/dL (8.5-10.1); Carbon Dioxide 30.9 mmol/L (21.0-32.0); Chloride 104 mmol/L (98-107); Cholesterol 240 mg/dL (<=200); Estimated GFR (African America >60 (>=60 mL/min/1.73m^2); Estimated GFR (Non-African Ame >60 (>=60 mL/min/1.73m^2); Globulin 3.8 g/dL; Glucose 110 mg/dL (74-106); HDL Cholesterol 44 mg/dL (40-60); Potassium 4.6 mmol/L (3.5-5.1); Sodium 142 mmol/L (136-145); Total Protein 7.9 g/dL (6.4-8.2); Triglycerides 134 mg/dL (<=150); VLDL CHOLESTEROL 26.8 mg/dL
== END 2025-02-21 06:18 | disposition home or self-care (01) ==
LOC: LAB 06:20
PROVIDERS: PCP Family Medicine; Visit Provider Family Medicine
DX: R73.09 Other abnormal glucose (principal); Z86.73 Personal history of transient ischemic attack (TIA), and cerebral infarction without residual deficits; I10 Essential (primary) hypertension; Z12.5 Encounter for screening for malignant neoplasm of prostate
CPT/HCPCS: 36415; 80053; 80061; 82043; 82570; 83036; 85025; G0103